=== PATIENT | male | born 1980 | race Caucasian/White ===

== ENCOUNTER 2021-11-26 23:48 | Emergency (ER) | payer BC ==
[~2021-11-26] VITALS: Ht 188 cm; Wt 108.9 kg
[2021-11-27] VITALS: BP_SYST 154
--- NOTE | 2021-11-27 00:03 | NUR ---
Placed in room 5 . Placed on school bus monitor, blood pressure machine and pulse oximeter. To gown for exam. Side rails up. Report given to Tommie GRIFFIN(reg).
--- NOTE | 2021-11-27 00:17 | NUR ---
Patient BIB his mother via POV, for Chest pain. Patient states chest pain "started at 10 am, but has gone down since then." Patient states that chest pain does not radiate. Patient lying in bed, resting comfortably. Bed in Low and locked position.
[2021-11-27] MEDS ORDERED: PANTOPRAZOLE SODIUM 40 MG/VIAL (PROTONIX) IVP ONE (01:00)
--- NOTE | 2021-11-27 01:10 | NUR ---
Patient is A/Ox4, lying in bed resting comfortably, no s/s of distress. Patients skin is intact, patient self turns. Patient stated pain is 0/10. Patient chest rise and fall symmetrical. Bed in low and locked position, bed rails up.
[2021-11-27 01:15] LABS: CALCIUM 8.8 mg/dL (8.4-11.0); CREATININE 1.1 mg/dL (0.55-1.30)
[2021-11-27 01:23] LABS: ALBUMIN 3.7 g/dL (3.4-4.8); BASOPHILS % (AUTO) 0.6 % (0.0-2.0); EOSINOPHILS # (AUTO) 0.1 K/uL (0.0-0.4); EOSINOPHILS % (AUTO) 1.3 % (0.0-4.0); HEMATOCRIT 42.7 % (36-54); HEMOGLOBIN 14.4 g/dL (14.0-18.0); LYMPHOCYTES # (AUTO) 1.8 K/uL (1.0-5.5); LYMPHOCYTES % (AUTO) 21.5 % (20.5-51.5); MEAN CORPUSCULAR HEMOGLOBIN 28 pg (27-31); MEAN CORPUSCULAR HGB CONC 34 % (32-36); MEAN CORPUSCULAR VOLUME 83 fL (79.0-98.0); MONOCYTES # (AUTO) 0.6 K/uL (0.0-1.0); NEUTROPHILS # (AUTO) 5.7 K/uL (1.8-7.7); NEUTROPHILS % (AUTO) 69.6 % (40.0-70.0); PLATELET COUNT (AUTO) 189 K/uL (130-430); RED BLOOD CELL COUNT(AUTO) 5.17 MIL/uL (4.2-6.2); TOTAL BILIRUBIN 0.4 mg/dL (0.0-1.0); WHITE BLOOD COUNT (AUTO) 8.2 K/uL (4.8-10.8)
[2021-11-27 02:48] LABS: BILIRUBIN,URINE NEGATIVE (NEGATIVE); BLOOD, URINE NEGATIVE (NEGATIVE); CLARITY/URINE CLEAR (CLEAR); COLOR,URINE YELLOW (YELLOW); GLUCOSE,URINE NEGATIVE (NEGATIVE); KETONES,URINE NEGATIVE (NEGATIVE); LEUKOCYTE ESTERASE ,URINE NEGATIVE (NEGATIVE); NITRITE, URINE NEGATIVE (NEGATIVE); PROTEIN URINE NEGATIVE (NEGATIVE)
[2021-11-27 03:03] LABS: LIPASE 220 U/L (73-393)
[2021-11-27 04:02] VITALS: BP_SYST 125
--- NOTE | 2021-11-27 04:06 | NUR ---
Patient is a/Ox4. Patient given written and verbal discharge instructions and verbalizes understanding. ER MD Dr. Mosqueda discussed with patient the results and treatment provided. Patient in stable condition. ID arm band removed. IV catheter removed intact and dressing applied, no active bleeding, skin intact. Patient walks with strong gait.
[2021-11-27 06:47] LABS: C-REACTIVE PROTEIN QUANT 1.1 mg/dL (0-0.5)
== END 2021-11-27 04:06 | disposition home or self-care (01) ==
LOC: SED 23:48
DX: K29.70 Gastritis, unspecified, without bleeding (principal); F41.9 Anxiety disorder, unspecified
CPT/HCPCS: 36415; 71045; 80053; 81003; 83690; 83880; 84484; 85025; 86140; 93005; 96374; 99285; C9113